=== PATIENT | female | born 1960 | race Two or more races ===

== ENCOUNTER 2021-01-10 13:20 | Outpatient (CLI) | payer OTHER | END 2021-01-10 13:26 | disposition home or self-care (01) | LOC: RAD 13:20 → MAMO-SONO 13:45 | PROVIDERS: ATTEND Urology | DX: N30.10 Interstitial cystitis (chronic) without hematuria (principal); N20.0 Calculus of kidney ==

== ENCOUNTER 2024-07-07 15:53 | Emergency (ER) | payer OTHER ==
[~2024-07-07] VITALS: Ht 160 cm; Wt 71.7 kg
[2024-07-07] MEDS ORDERED: CLONIDINE HCL0.1 MG (16:11)
[2024-07-07] MEDS ORDERED: LOSARTAN POTASS25 MG (16:11)
[2024-07-07] MEDS ORDERED: HYDROCHLOROTH12.5 M2 (16:11)
[2024-07-07 17:16] LABS: HEMATOCRIT 33.9 % (36.0-45.00); HEMOGLOBIN 11.6 g/dL (12.0-15.00); MEAN CELL VOLUME 91.6 fL (80.00-100.00); MEAN CORPUSCULAR HEMOGLOBIN 31.5 pg (27.00-32.0); MEAN CORPUSCULAR HGB CONC 34.4 g/dl (32.0-36.0); PLATELET COUNT 250 K/uL (150-450)
[2024-07-07 17:31] LABS: CALCIUM 8.4 mg/dL (8.5-10.1); CREATININE SERUM 0.67 mg/dL (0.55-1.02); GFR 88.06; POTASSIUM 3.04 mEq/L (3.5-5.1)
[2024-07-07 17:34] LABS: PH,URINE 6.5 (5.0-8.0); URINE APPEARANCE Clear; URINE BILIRRUBIN Negative (NEGATIVE); URINE BLOOD Negative; URINE COLOR Yellow; URINE GLUCOSE Negative (NEGATIVE); URINE KETONE Trace (NEGATIVE); URINE LEUKOCYTE Trace; URINE NITRATE Negative; URINE PROTEIN Negative (NEGATIVE)
[2024-07-07 17:37] LABS: URINE BACTERIA 1284.9 uL (0.0-1933); URINE EPITHELIAL CELLS 52.6 uL (0.0-38.8); URINE RBC 2.1 uL (0.0-20.8)
== END 2024-07-07 18:55 | disposition home or self-care (01) ==
LOC: ER 15:54
PROVIDERS: General Practice
DX: N81.10 Cystocele, unspecified (principal)

== ENCOUNTER → 2025-10-01 09:55 | Outpatient (CLI) | payer OTHER ==
[~2025-10-01 09:55] MED LIST: CLONIDINE HCL0.1 MG; HYDROCHLOROTH12.5 M2; LOSARTAN POTASS25 MG
[2025-10-01 11:39] LABS: BASO % 1.3 % (0.1-1.2); EOS # 0.12 (0.04-0.54); EOS % 3.1 % (0.7-7.0); LYMPH # 1.00 (1.18-3.74); LYMPH % 25.6 % (19.3-53.1); MEAN PLATELET VOLUME 9.70 fl (9.4-12.4); MONO # 0.49 (0.24-0.82); NEUT # 2.23 (1.56-6.13); NEUT % 57.0 % (34.0-71.1); RED CELL DISTRIBUTION WIDTH 14.0 % (11.6-14.4)
[2025-10-01 11:40] LABS: MONO % 12.5 % (4.7-12.5)
[2025-10-01 11:57] LABS: URINE APPEARANCE Clear; URINE BILIRRUBIN Negative (NEGATIVE); URINE BLOOD Trace; URINE COLOR Yellow; URINE GLUCOSE Negative (NEGATIVE); URINE KETONE Negative (NEGATIVE); URINE LEUKOCYTE Negative; URINE NITRATE Negative; URINE PROTEIN Trace (NEGATIVE); URINE UROBILINOGEN 0.2 E.U./dl
[2025-10-01 12:03] LABS: INR 1.01
[2025-10-01 12:09] LABS: URINE BACTERIA 111.5 uL (0.0-1933); URINE EPITHELIAL CELLS 20.6 uL (0.0-38.8); URINE RBC 10.8 uL (0.0-20.8); URINE WBC 4.9 uL (0.0-23.2)
[2025-10-01 12:12] LABS: URINE CAST 0.14 uL (0.0-1.40)
[2025-10-01 12:19] LABS: ALT/SGPT 16.0 U/L (12-78); AST/SGOT 15.0 U/L (15-37); BILIRUBIN TOTAL 0.62 mg/dL (0.3-1.2); BUN CREA RATIO 30.0 (7.0-25.0); CREATININE SERUM 0.61 mg/dL (0.55-1.02); GFR 97.83; GLOBULINA 3.7 G/DL (2.4-3.5); GLUCOSE FASTING 93.0 mg/dL (65-100); OSMOLALITY SERUM 283.0 MOSM/KG (275-295)
== END | disposition home or self-care (01) ==
LOC: RAD 09:55
PROVIDERS: ATTEND Obstetrics & Gynecology Gynecology
DX: R07.89 Other chest pain (principal); I10 Essential (primary) hypertension; Z01.812 Encounter for preprocedural laboratory examination; Z01.818 Encounter for other preprocedural examination; D50.8 Other iron deficiency anemias; R73.03 Prediabetes; D68.8 Other specified coagulation defects; N39.0 Urinary tract infection, site not specified

== ENCOUNTER 2025-10-23 09:00 | Day surgery (SDC) | payer OTHER ==
[2025-10-11 10:13] VITALS: BP 117/65
[~2025-10-23] VITALS: Ht 160 cm; Wt 69.4 kg
[~2025-10-23 09:00] MED LIST changes: +ACID REDUCER20 MG PO; +ANASTROZOLE1 MG; +ATORVASTATIN CA10 MG; +CATAPRES0.3 MG; +LEVOTHYROXINE25 MCG; +LIPOFEN50 MG
[2025-10-23] MEDS ORDERED: CEFAZOLIN SODIUM 1,000 MG VIAL IV ONE (10:15)
[2025-10-23] MEDS ORDERED: TRAM1TAB98 PO (10:28)
[2025-10-23] MEDS ORDERED: GENTAMICIN SULFATE 40 MG/ML VIAL IR ONE (14:45)
[2025-10-23] MEDS ORDERED: CHLORHEXIDINE GLUCONATE 120 ML BOTTLE TOP ONE (14:45)
[2025-10-23] MEDS ORDERED: LIDOCAINE HCL 1%/EPINEPHRINE 20ML VIAL IJ ONE (14:45)
== END 2025-10-23 15:40 | disposition home or self-care (01) ==
LOC: CIR.AMB 09:00
PROVIDERS: ATTEND Obstetrics & Gynecology Gynecology
DX: N88.8 Other specified noninflammatory disorders of cervix uteri (principal); N88.4 Hypertrophic elongation of cervix uteri